=== PATIENT | female | born 1980 | race Caucasian/White ===

== ENCOUNTER → 2016-10-10 | Outpatient (CLI) | payer BC, OTHER | LOC: MRI 08:42 | DX: G43.909 Migraine, unspecified, not intractable, without status migrainosus (principal) ==

== ENCOUNTER → 2018-12-24 | Outpatient (CLI) | payer BC, OTHER | LOC: MRI 12:31 | DX: G43.919 Migraine, unspecified, intractable, without status migrainosus (principal); J34.1 Cyst and mucocele of nose and nasal sinus; F41.9 Anxiety disorder, unspecified ==